=== PATIENT | male | born 1955 | race Caucasian/White ===

== ENCOUNTER 2024-03-01 15:42 | Outpatient (CLI) | payer MEDICARE, BC, SELFPAY | END 2024-03-01 15:43 | disposition home or self-care (01) | PROVIDERS: PCP Family Medicine; Visit Provider Family Medicine | DX: I10 Essential (primary) hypertension (principal); R73.03 Prediabetes; Z12.5 Encounter for screening for malignant neoplasm of prostate | CPT/HCPCS: 80048; 80061; 84460; G0103 ==

== ENCOUNTER 2025-05-28 08:44 | Outpatient (CLI) | payer MEDICARE, BC, SELFPAY | END 2025-05-28 08:45 | disposition home or self-care (01) | LOC: NFLDREF 06-01 14:41 | PROVIDERS: PCP Family Medicine; Referring Provider Family Medicine; Visit Provider Family Medicine | DX: I10 Essential (primary) hypertension (principal); Z12.5 Encounter for screening for malignant neoplasm of prostate; Z13.1 Encounter for screening for diabetes mellitus | CPT/HCPCS: 80048; G0103 ==